=== PATIENT | female | born 1960 | race Caucasian/White ===

== ENCOUNTER → 2024-11-25 | Outpatient (CLI) | payer MEDICARE, SELFPAY | END | disposition home or self-care (01) | PROVIDERS: PCP Physician Assistant; Referring Provider Obstetrics & Gynecology; Visit Provider Obstetrics & Gynecology | DX: R30.0 Dysuria (principal) | CPT/HCPCS: 87086 ==

== ENCOUNTER → 2024-11-29 | Outpatient (CLI) | payer MEDICARE, SELFPAY ==
--- NOTE | 2024-11-29 08:47 | US_ITS ---
PROCEDURE: PELVIC W/ TRANSVAGINAL REASON FOR EXAM: Prolapse. TECHNIQUE: Transabdominal and transvaginal pelvic ultrasound COMPARISON: None. FINDINGS: Measurements: Uterus: 7.3 cm x 3.9 cm x 2.1 cm with a volume of 45.6 mL Endometrial Thickness: 2.7 mm Right Ovary: 2.1 cm x 1.5 cm x 1.3 cm with a volume of 2.2 mL. Left Ovary: 2.4 cm x 1.8 cm x 1.6 cm with a volume of 3.5 mL. TRANSABDOMINAL: Uterus: Heterogeneous echotexture of the myometrium suggestive of fibroid change although no focal fibroid is seen. Endometrium: Fluid-filled. Right ovary: Normal size and echotexture. Left ovary: Normal size and echotexture. No large pelvic mass identified. Transvaginal sonography was performed to better visualize the endometrium and to look for the nonvisualized ovary or ovaries. TRANSVAGINAL: Uterus: Anteverted. Heterogeneous echotexture of the myometrium. Nabothian cyst is seen. Endometrium: Normal echotexture. Right ovary: Normal size and echotexture. Left ovary: Normal size and echotexture. Other adnexal findings: None. Cul-de-sac: No free intraperitoneal fluid identified. No tenderness. US/Pelvic w/ Transvaginal IMPRESSION: Heterogeneous appearance of the uterus as described suggestive of fibroid blanco e. Minimal thickness of the endometrium which is fluid-filled. Reading Location: [place] [id number]
== END | disposition home or self-care (01) ==
LOC: US 08:45
PROVIDERS: PCP Physician Assistant; Referring Provider Obstetrics & Gynecology; Visit Provider Obstetrics & Gynecology
DX: N81.6 Rectocele (principal)
CPT/HCPCS: 76830; 76856

== ENCOUNTER → 2024-12-14 | Outpatient (CLI) | payer MEDICARE, SELFPAY ==
--- NOTE | 2024-12-14 16:15 | EMB_PTH ---
PATIENT: MARIZA COLE LOC: [facility] U#:[id number] AGE/SX: 64/F ROOM: RE12/14/[address]: Dr. Elsie Perez MD : 1960 BED: DIS: 12/14/2024 SPEC #: [id number] RECD: 12/15/24 10:34 STATUS: MATTHEW DOTSON #: [id number] CRISTOFER: 12/14/24 16:[address]: Elsie Perez DEPT: SURGICAL PATHOLOGY RECD BY: Mike Diez ENTERED: 12/15/24 10:34 SP TYPE: ENDOM BX/C PRESTON DR: NOVA Grant Tissues: Endometrium, NOS Procedures: Surgery Specimen Level IV HEADER OPERATION: Endometrial biopsy PRE-OP DIAGNOSIS: Fluid in endometrial cavity TISSUE SUBMITTED: Endometrial tissue MICROSCOPIC DIAGNOSIS Endometrium, curettage: * Scant benign superficial endometrial epithelium and squamous mucosa - see note. * Note: A limited amount of tissue is present for evaluation. Clinical correlation is necessary to assess the adequacy of the sampling. MICROSCOPIC DESCRIPTION Slides are reviewed. GROSS DESCRIPTION Received in formalin labeled, Mariza Martinez, and not designated, are multiple red-brown, hemorrhagic, soft tissue fragments and mucus that aggregate to 1.6 x 1.0 x 1.2 cm. Totally submitted in 1 cassette.[email or web address]. 12/15/2024 TC: CPT:19692
== END | disposition home or self-care (01) ==
LOC: LABSPEC 16:51
PROVIDERS: PCP Physician Assistant; Referring Provider Obstetrics & Gynecology; Visit Provider Obstetrics & Gynecology
DX: N85.8 Other specified noninflammatory disorders of uterus (principal)
CPT/HCPCS: 88305